=== PATIENT | female | born 1935 | race Two or more races ===

== ENCOUNTER 2016-11-28 16:47 | Emergency (ER) | payer OTHER ==
[~2016-11-28] VITALS: Ht 157.5 cm; Wt 72.6 kg
[~2016-11-28 16:47] MED LIST: NKM
[2016-11-28 17:08] VITALS: BP 175/70
[2016-11-28] MEDS ORDERED: Oxycodone/Acetaminophen 5-325 ORAL ONE (17:15)
--- NOTE | 2016-11-28 17:16 | Emergency Room Report ---
History of Present Illness General Chief Complaint: Headache Source: Patient, EMS, PMD Present Illness HPI 81YOF BIBEMS from PMD's office for 4 days intermittent right sided frontal non- radiating headache. No assoc with fever/chills, neck pain/stiffness, focal extremity weakness. PMD told EMS patient had "aphasia" and "was confused for 3 days" however EMS disagreed, and patient denies confusion, appears to be oriented and alert. BP noted to be high, DBP>100. Not on medication for HTN, was told previously she has HTN. Allergies: Coded Allergies: No Known Allergies (Unverified , 11/28/16) Patient History Past Medical History: HTN Past Surgical History: none Pertinent Family History: none Social History: Denies: alcohol use, drug use, smoking Now: No Immunizations: UTD Reviewed Nursing Documentation: PMH: Agreed, PSxH: Agreed Nursing Documentation-PMH Hx Hypertension: Yes Hx Diabetes: Yes Review of Systems All Other Systems: negative except mentioned in HPI Physical Exam Vital Signs Date Time Temp Pulse Resp B/P Pulse Ox O2 Delivery O2 Flow Rate FiO2 11/28/16 16:43 97.9 62 18 186/108 98 Room Air Sp02 EP Interpretation: reviewed, abnormal General Appearance: normal inspection, well appearing, no apparent distress, alert, GCS 15, non-toxic Head: normocephalic, atraumatic Eyes: bilateral eye EOMI, bilateral eye PERRL ENT: normal ENT inspection, hearing grossly normal, normal voice Neck: normal inspection, full range of motion, supple, no meningismus, no bony tend Respiratory: normal inspection, lungs clear, normal breath sounds, no respiratory distress, no retraction, no accessory muscle use, no wheezing Cardiovascular #1: regular rate, rhythm, no edema Gastrointestinal: normal inspection, normal bowel sounds, non tender, soft, no guarding, no hernia Genitourinary: no CVA tenderness Neurologic: normal inspection, alert, oriented x3, responsive, imaging account manager III-XII nml as tested, motor strength/tone normal, speech normal Psychiatric: normal inspection, judgement/insight normal, mood/affect normal Skin: normal inspection Lymphatic: normal inspection Medical Decision Making Diagnostic Impression: Primary Impression: Headache Qualified Codes: G44.209 - Tension-type headache, unspecified, not intractable Additional Impressions: Essential hypertension Hypercalcemia COOPER (acute kidney injury) ER Course CT head negative for acute ICH, mass, mass effect BP improved from 186/108 to 175/70 with small dose of percocet Unlikely HTN emergency/urgency Labs: Ca 13.2 with COOPER Patient takes daily calcium supplement headache - possibly d/t hyperCa - Also dehydrated - Possibly that HyperCa causing COOPER is also contributing to elevated BP - Will NOT DC on HTN medication until she is reassesed by PMD to recheck labs, BP. - Needs admission for IV hydration, Lasix, recheck kidney function and Ca level however patient states she has a son with seizures at home, cant stay. In shared decision making, she agrees for IVF hydrationhere, will STOP taking her Ca supplement, will f/up with PMD to recheck kidney and Ca levels in next day. Will not give Lasix given concomittant COOPER. Patient is clinically sober, is free from from distracting injury, and has intact judgement and capacity to decide to leave against medical advice. Patient came in with headache, found to have critically high Ca level and COOPER. I'm concerned for worsening kidney function, failure and she needs admission for hydration, Lasix, Renal consult. Patient verbalized understanding of my concern and my need to do aforementioned. I explained to patient the risks of leaving AMA and patient informed that if they he leaves, they could get worse, he could become become critically ill, possibly become disabled or . Patient verbalized back to me understanding of these risks but still wants to leave. EKG Diagnostic Results Rate: normal Rhythm: NSR ST Segments: no acute changes ASA given to the pt in ED: No Rhythm Strip Diag. Results EP Interpretation: yes Rate: 75 Rhythm: NSR, no PVC's, no ectopy Last Vital Signs Date Time Temp Pulse Resp B/P Pulse Ox O2 Delivery O2 Flow Rate FiO2 11/28/16 16:43 97.9 62 18 186/108 98 Room Air Status: improved Disposition: AGAINST MEDICAL ADVICE CYNTHIA ADKINS M.D. Nov 28, 2016 17:16
[2016-11-28 17:59] LABS: BASOPHILS % (AUTO) 1.5 % (0.0-2.0); EOSINOPHILS % (AUTO) 1.2 % (0.0-3.0); LYMPHOCYTES % (AUTO) 47.1 % (20.0-45.0); MEAN CORPUSCULAR HEMOGLOBIN 29.8 PG (27.0-31.0); MEAN CORPUSCULAR VOLUME 99 FL (80-99); MONOCYTES % (AUTO) 5.8 % (1.0-10.0); NEUTROPHILS % (AUTO) 44.4 % (45.0-75.0); PLATELET COUNT 136 K/UL (150-450); RED BLOOD COUNT 4.06 M/UL (4.20-5.40); RED CELL DISTRIBUTION WIDTH 13.7 % (11.6-14.8); WHITE BLOOD COUNT 5.9 K/UL (4.8-10.8)
[2016-11-28 18:00] VITALS: BP 179/114
[2016-11-28 18:04] LABS: ALANINE AMINOTRANSFERASE 8 U/L (3-33); ALBUMIN/GLOBULIN RATIO 1.3 (1.0-2.7); ANION GAP 13 (5-15); ASPARTATE AMINO TRANSFERASE 20 U/L (5-40); CARBON DIOXIDE 25 mEQ/L (20-30); CHLORIDE 99 mEQ/L (98-107); CREATININE 1.3 mg/dL (0.5-0.9); HEMOLYSIS 76; POTASSIUM 4.8 mEQ/L (3.4-4.9); SODIUM 137 mEQ/L (135-145); TOTAL PROTEIN 6.9 g/dL (6.6-8.7)
[2016-11-28 18:05] LABS: CALCIUM 13.2 mg/dL (8.6-10.2)
[2016-11-28 18:20] LABS: TROPONIN I < 0.30 ng/mL (<=0.30)
[2016-11-28 18:47] VITALS: BP 189/84
[2016-11-28 20:25] VITALS: BP 173/86
[2016-11-28 20:39] VITALS: BP 173/86
--- NOTE | 2016-11-29 14:50 | Diagnostic Imaging Report ---
Indication: PAIN head pain Technique: spiral acquisitions obtained through the brain. Angled axial and coronal 5 x 5 mm slices were reconstructed. No IV contrast utilized. Radiation dose was minimized using automated exposure control Total dose length product 1393 mGycm. CTDIvol(s) 70 mGy Comparison: none FINDINGS: No acute hemorrhage or edema. No mass effect or midline shift. There is age-related enlargement of the ventricles and extra axial CSF spaces. There is periventricular deep white matter ischemic change. 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 Normal gann-white differentiation. Visualized orbits are unremarkable. Visualized sinuses are unremarkable. Intact calvarium. Prominent hypoattenuating solid turcica, likely empty sella IMPRESSION: Chronic and age-related changes. Negative for acute intracranial bleed or mass effect Incidental finding of empty sella This agrees with the preliminary interpretation provided overnight by Dr. Champion The CT scanner at [facility] is accredited by the [employer] and the scans are performed using protocols designed to limit radiation exposure to as low as reasonably achievable to attain images of sufficient resolution adequate for diagnostic evaluation
--- NOTE | 2016-11-29 20:25 | Cardiology Report ---
APPROVED REPORT EKG Measurement Heart [id number] ME [id number] Sinus bradycardia with sinus arrhythmia with 1st degree AV block Left axis deviation Nonspecific T wave abnormality Abnormal ECG
== END 2016-11-28 21:40 | disposition left against medical advice (07) ==
LOC: EDBD 16:47 → EMR 17:51
DX: N17.9 Acute kidney failure, unspecified (principal); G44.209 Tension-type headache, unspecified, not intractable; I10 Essential (primary) hypertension; E83.52 Hypercalcemia; E11.9 Type 2 diabetes mellitus without complications
CPT/HCPCS: 36415; 70450; 80053; 84484; 85025; 93005; 96360